=== PATIENT | male | born 1940 | race Caucasian/White ===

== ENCOUNTER → 2024-07-27 11:17 | Outpatient (REF) | payer OTHER, SELFPAY | LOC: HWRAD 11:17 | PROVIDERS: ATTENDING PHYSICIAN Internal Medicine Cardiovascular Disease; FAMILY PHYSICIAN Internal Medicine | DX: I65.23 Occlusion and stenosis of bilateral carotid arteries (principal) | CPT/HCPCS: 93880 ==

== ENCOUNTER → 2024-09-05 11:36 | Outpatient (REF) | payer OTHER, SELFPAY | LOC: RAD 11:36 | PROVIDERS: ATTENDING PHYSICIAN Surgery Vascular Surgery; FAMILY PHYSICIAN Internal Medicine | DX: I65.23 Occlusion and stenosis of bilateral carotid arteries (principal) | CPT/HCPCS: 70496; 70498; Q9967 ==

== ENCOUNTER 2024-10-09 06:10 | Inpatient (IN) | payer OTHER, SELFPAY ==
[2024-10-02 09:18] VITALS: BMI 27.4
[2024-10-02 09:42] LABS: % Basophils 0.7 % (0-2); % Eosinophils 6.5 % (0-6); % Immature Granulocytes 0.3 % (0-0.5); % Lymphocytes 13.7 % (20.5-51.1); % Monocytes 11.8 % (1.7-9.3); Absolute Basophils 0.1 10^3/uL (0-0.2); Absolute Eosinophils 0.6 10^3/uL (0-0.7); Absolute Lymphocytes 1.2 10^3/uL (1.2-3.4); Absolute Neutrophils 5.8 10^3/uL (1.4-6.5); Hemoglobin 15.2 g/dL (13.0-18.0); Mean Corp Hgb Conc. 34.5 g/dL (33.0-37.0); Mean Corpuscular Hgb 33.3 pg (27.0-31.0); Mean Corpuscular Volume 96.5 fL (80.0-94.0); Nucleated Red Blood Cells % 0 % (-); Platelet Count 219 10^3/uL (130-400); Red Blood Cell Count 4.56 10^6/uL (4.70-6.10); Red Cell Dist. Width 13.6 % (11.5-14.5); White Blood Cell Count 8.7 10^3/uL (4.8-10.8)
[2024-10-02 09:46] LABS: INR 1.23; PT 15.8 Sec (11.4-14.6)
[2024-10-02 09:47] LABS: APTT 31.4 Sec (23.4-35.0)
[2024-10-02 10:54] LABS: Blood Urea Nitrogen 16 mg/dl (9-20); Calcium 10.7 mg/dl (8.4-10.2); Carbon Dioxide 28 mmol/L (22-30); Chloride 104 mmol/L (98-107); Estimated Creatinine Clearance 53 ml/min; Glucose 104 mg/dl (70-99); Sodium 138 mmol/L (135-145); eGFR > 60.00
[2024-10-09] VITALS (21 sets, daily range): BP systolic 71–152; BP diastolic 34–63; BMI 27.3; BMI 27.4
[2024-10-09] MEDS: BACTROBAN NASAL 1 GRAM NASAL (07:06)
[2024-10-09] MEDS: PERIDEX 0.12% ORAL RINSE 15 ML PO (07:06)
--- NOTE | 2024-10-09 07:27 | W.SUR.PREOP ---
Pre-Operative Surgical Note
-
I have examined this patient prior to the performance of the scheduled procedure.
The patient's condition is unchanged from the time of the current History and
Physical and the patient is able to undergo the scheduled procedure.
[2024-10-09 09:02] LABS: ACT-LR - POC 356 Seconds (116-155)
[2024-10-09 09:38] LABS: ACT-LR - POC 326 Seconds (116-155)
--- NOTE | 2024-10-09 10:05 | OR.RPT ---
Operative Report
Operative Report
Date of Operation: 10/09/2024
Pre Op Diagnosis: Right carotid artery stenosis
Post Op Diagnosis: Right carotid artery stenosis
Procedure: RIGHT carotid endarterectomy with patch angioplasty using bovine pericardium
Surgeon: Uday Hannah III, MD
Contractor [employer]: Abel Carreon MD PGY1
Anesthesia: General
Complications: None
History and Indications for Procedure: 84-year-old male with high-grade right carotid artery stenosis
Procedure in Detail: Chavo Milian was correctly identified and placed supine on the operating table. After adequate induction of anesthesia the right neck was positioned, prepped and draped in the usual sterile fashion. Preoperative antibiotics
were administered. A timeout procedure was performed with the nursing and anesthesia staff confirming the patients identity as well as the nature and laterality of the procedure.
The carotid bifurcation was marked with ultrasound at the beginning of the case. The incision was planned accordingly. An incision was made along the anterior border of the right sternocleidomastoid muscle. Electrocautery was used to divide the
subcutaneous tissue and platysma. The carotid sheath was entered with sharp dissection. The internal jugular vein was retracted laterally. The vagus nerve was identified and protected throughout the case. The common carotid artery was identified at
the base of this incision and carefully encircled with a vessel loop. The patient was systemically heparinized. The dissection was continued distally towards the carotid bifurcation. The facial vein was skeletonized, ligated and divided between ties
and clips. The proximal external carotid artery was encircled with a vessel loop. The distal internal carotid artery was encircled with a vessel loop at a soft spot on the artery beyond the plaque. The hypoglossal nerve was identified and protected.
The internal vessel loop was secured followed by the common and external. An arteriotomy was made on the distal common carotid artery with an 11-blade. This was extended proximally and distally with Jensen scissors. The arteriotomy was extended
distally through the plaque to an area of normal appearing internal carotid artery. The distal vessel loop was replaced with a short tip hockey-stick type vascular clamp. An endarterectomy was performed with a Cherokee elevator in the standard
fashion. The proximal extent of the plaque was transected with scissors. The distal end of the plaque in the internal carotid artery was feathered. No distal intimal flap was identified. The plaque extending into the external carotid artery was
everted. Once the plaque was fully removed the endarterectomy plane was irrigated with heparinized saline and any loose fronds of tissue were removed. A pre-cut piece of bovine pericardium was sewn in place using a running 6-0 Prolene suture. Prior
to the completion of the patch the common carotid was allowed to forward bleed and the external was allowed to back bleed. The area under the patch was irrigated with heparinized saline to remove any potential thrombus or debris. The anastomosis was
completed.
The external vessel loop was released first, followed by the common and then the internal. There was an excellent pulse in the distal internal carotid artery. An excellent quality Doppler signal in the distal internal carotid artery was also
confirmed. The patch suture line was closely inspected for hemostasis and was achieved. Protamine was administered. Hemostasis was achieved in the wound bed. The wound was irrigated with saline solution.
The wound was then closed in layers. Sterile skin glue was applied. The patient awoke from anesthesia with no immediate neuro deficits and was taken to the PACU in stable condition.
Attestation: I was present and responsible for the entire procedure
Signed:
Uday Hannah III, MD
Vascular Surgery
[facility]
[2024-10-09 10:57] LABS: Hematocrit 37.3 % (39.0-52.0); Hemoglobin 13.2 g/dL (13.0-18.0); Mean Corp Hgb Conc. 35.4 g/dL (33.0-37.0); Mean Corpuscular Hgb 33.6 pg (27.0-31.0); Mean Corpuscular Volume 94.9 fL (80.0-94.0); Mean Platelet Volume 10.2 fL (7.4-10.4); Platelet Count 185 10^3/uL (130-400); Red Blood Cell Count 3.93 10^6/uL (4.70-6.10); Red Cell Dist. Width 13.2 % (11.5-14.5); White Blood Cell Count 13.1 10^3/uL (4.8-10.8)
[2024-10-09] MEDS: NEO-SYNEPHRINE 250 IV (11:05)
[2024-10-09] MEDS: DILAUDID 0.25 MG IV ×2 (11:08→11:40)
[2024-10-09 11:15] LABS: Blood Urea Nitrogen 19 mg/dl (9-20); Calcium 9.4 mg/dl (8.4-10.2); Carbon Dioxide 23 mmol/L (22-30); Chloride 108 mmol/L (98-107); Estimated Creatinine Clearance 59 ml/min; Glucose 137 mg/dl (70-99); Potassium 4.2 mmol/L (3.5-5.1); Sodium 136 mmol/L (135-145); eGFR > 60.00
[2024-10-09] MEDS: NSS 1000 IV ×2 (12:00→21:09)
--- NOTE | 2024-10-09 14:35 | CON.INTV ---
Consultation
Consultation Request
Date/Time Consultation Requested: 10/09/24
Date/Time Consultation Performed: 10/09/24
Performing Provider: Nilay
Reason for Consultation: ICU
Medical History
-
History of Present Illness:
Patient is an 84-year-old male with previous history of hypertension, hyperlipidemia, CAD, A-fib presenting for elective right carotid intervention. Is known to vascular as an outpatient with asymptomatic right carotid artery stenosis. Underwent
right CEA 10/09 and tolerated procedure well. He is admitted postoperatively to ICU for further management.
Past Medical History
Past Medical History: Other (see list below)
Social History
Tobacco: Non-smoker
Alcohol: None
Drug: None
Family History
Family History: Reviewed & Not Pertinent
Allergies / Home Medications
Allergies
Allergy/AdvReac Type Severity Reaction Status Date / Time
aspirin Allergy GI upset Verified 09/26/24 14:22
wheat Allergy wheezing Verified 09/26/24 14:22
Home Medications
�Medication �Instructions �Recorded �Confirmed �Last Taken �Type
acetylcarnitine HCl 250 mg capsule 1,000 mg PO DAILY 09/26/24 10/09/24 09/25/24 09:00 History
apixaban 5 mg tablet (Eliquis) 5 mg PO BID 09/26/24 10/09/24 10/06/24 18:00 History
ascorbic acid (vitamin C) 500 mg 500 mg PO DAILY 09/26/24 10/09/24 09/25/24 09:00 History
tablet (Vitamin C)
cholecalciferol (vitamin D3) 50 50 mcg PO DAILY 09/26/24 10/09/24 09/25/24 09:00 History
mcg (2,000 unit) capsule (Vitamin
D3)
clopidogrel 75 mg tablet 75 mg PO HS 09/26/24 10/09/24 10/08/24 18:00 History
coQ10 (ubiquinol) 200 mg capsule 200 mg PO DAILY 09/26/24 10/09/24 09/25/24 08:00 History
pravastatin 20 mg tablet 20 mg PO HS 09/26/24 10/09/24 10/08/24 18:00 History
sotalol 80 mg tablet 80 mg PO BID 09/26/24 10/09/24 10/09/24 06:00 History
Review of Systems
-
History Source: Patient
All other systems: Negative unless noted
Vitals / Labs / Diagnostic Testing
Vital Signs
Temp Pulse Resp BP Pulse Ox
97.3 F 57 21 102/52 95
10/09/24 10:30 10/09/24 14:15 10/09/24 14:15 10/09/24 14:00 10/09/24 14:15
Lab Data
10/09/24 10:49
10/09/24 10:49
Diagnostic Testing:
Physical Exam
-
HEENT: Normocephalic, Anicteric, Moist Mucous Membranes and Other (incision CDI)
Cardiovascular: S1/S2 and Regular Rhythm
Respiratory: Clear and Non-Labored Respirations
GI: Soft, Non Distended and Non Tender
Neurology: Awake, Alert, Oriented and No Motor Deficits
Skin: Warm, Dry and Good Color
General: Comfortable and Other (NAD)
Assessment
-
Patient is an 84-year-old male with previous history of hypertension, hyperlipidemia, CAD, A-fib presenting for elective right carotid intervention. Is known to vascular as an outpatient with asymptomatic right carotid artery stenosis. Underwent
right CEA 10/09 and tolerated procedure well. He is admitted postoperatively to ICU for further management.
Carotid disease s/p R CEA 10/09/24
Leukocytosis, mild
Hyperglycemia
Conditions present prior to admission
Hypertension
Hyperlipidemia
CAD
Enlarged prostate
Paroxysmal atrial fibrillation on Eliquis
Mitral regurgitation
Basal cell carcinoma on the forehead
Plan
Patient is s/p R CEA by vascular surgery service, POD #0
Continue observation following procedure
Follow neurovascular checks per protocol
Follow BP monitoring and parameters as set by primary team
Cardiac history noted--PAF on Eliquis, sotalol--resume as able
Monitor on telemetry
Pain control per protocol
RASS goal 0
No prior history of pulmonary disease, stable on RA
CXR reviewed indicating no acute disease
No prior PFTs for review
Encouraged IS
Diet advancement per protocol
Aspiration precautions
GI prophylaxis if indicated for stress ulcer prevention in the critically ill
Creat at baseline, follow UO
Critical I/Os
Void trials
Replete electrolytes as needed
No signs/symptoms suspicious for infectious etiology at this time
Mild postop leukocytosis, monitor
Will observe off antibiotics for now
Follow temperatures/CBC
Hb and platelets postoperatively stable
DVT prophylaxis recommended if not contraindicated based on procedural history -- heparin SQ and mechanical SCDs
Encouraged OOB/PT/OT/ambulation once cleared by surgical team
We will follow
Diagnostic Data
Chest X-Ray: 10/02/24- 1. Calcific atherosclerotic disease in the coronary arteries and thoracic aorta.
2. Mild tortuosity of the thoracic aorta.
3. Mild elevation of the right hemidiaphragm.
4. Mild subsegmental atelectasis/scarring in the lingula.
5. 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
CT Scan: H&N 09/05/24- CT Brain: No acute intracranial process. Mild senescent change.
CTA Head: No significant arterial stenosis. No aneurysm.
CTA Neck:
-There is mixed density atherosclerotic plaque of the right carotid bifurcation/proximal ICA with resultant near total occlusion. This appears similar to prior imported CTA.
-There is mild narrowing within the superior aspect of the left common carotid artery secondary to noncalcified atherosclerotic plaque. There is mild retropharyngeal course of the left common carotid artery.
Echo:
PFT's:
Reports and relevant images were personally reviewed.
Critical Care time 50 mins -- this includes review of history, physical exam, medications, hemodynamic/O2 parameters, laboratory data, imaging and discussions with care team, pharmacy, nursing and patient.
[2024-10-09] MEDS: NSS 500 IV (16:12)
[2024-10-09 16:38] LABS: Glucose - Point of Care 151 mg/dl (70-99)
--- NOTE | 2024-10-09 16:51 | PTCARENOTE ---
Received pt from PACU after scheduled R CEA. VSS with BP managed on Richard-synephrine to maintain BP 100-165. Neurological check WNL. Sinus rhythm, room air with SpO2 96%. Tolerating diet. No UOP at this time. R neck incision approximated with
bruising, WEB MARKETING COORDINATOR, no drainage or edema. NSS at 80cc/hr. Left PIV X2 removed in PACU due to infiltration. R PIV and a-line WNL. Family at bedside, plan of care discussed.
--- NOTE | 2024-10-09 19:33 | PTCARENOTE ---
Assumed care of pt. approx 1900.
Arterial line waveform appropriate and correlating well with NIBP. Titration metrics off of Art line.
Remains off tanya, meeting SBP goal w.o support.
Pt. offers no complaints of pain.
Plan of care and limitations/restrictions explained to patient.
[2024-10-09] MEDS: HEPARIN 5000 UNITS SC (19:57)
--- NOTE | 2024-10-09 20:08 | PTCARENOTE ---
Vascular surgery notified of concerns with giving sotalol due to HR in 50-low 60s. SBP just at goal of 106, recently off tanya.
Orders to hold tonights dose. Per vascular coverage via TT.
[2024-10-09] MEDS: BETAPACE PO (20:23)
[2024-10-09] MEDS: PRAVACHOL 20 MG PO (21:06)
[2024-10-09] MEDS: PLAVIX 75 MG PO (21:06)
[2024-10-10] VITALS (30 sets, daily range): BP systolic 75–134; BP diastolic 41–96; BMI 27.5
[2024-10-10 03:04] LABS: Hematocrit 36.6 % (39.0-52.0); Hemoglobin 12.8 g/dL (13.0-18.0); Mean Corpuscular Volume 94.3 fL (80.0-94.0); Mean Platelet Volume 10.1 fL (7.4-10.4); Platelet Count 192 10^3/uL (130-400); Red Blood Cell Count 3.88 10^6/uL (4.70-6.10); Red Cell Dist. Width 13.7 % (11.5-14.5)
[2024-10-10 03:12] LABS: INR 1.23; PT 15.8 Sec (11.4-14.6)
[2024-10-10 03:13] LABS: APTT 30.4 Sec (23.4-35.0)
[2024-10-10 03:14] LABS: Blood Urea Nitrogen 22 mg/dl (9-20); Calcium 9.8 mg/dl (8.4-10.2); Carbon Dioxide 21 mmol/L (22-30); Chloride 108 mmol/L (98-107); Estimated Creatinine Clearance 53 ml/min; Glucose 146 mg/dl (70-99); Potassium 4.3 mmol/L (3.5-5.1); Sodium 135 mmol/L (135-145); eGFR > 60.00
--- NOTE | 2024-10-10 06:16 | PTCARENOTE ---
No change in pt. assessment HS.
--- NOTE | 2024-10-10 07:15 | W.PN.INTV ---
Today's Communication / Plan
Recommendations
Doing well, stable on RA
Add PRN nebs for SOB
Otherwise, encouraged OOB/PT, ambulation
Discharge planning per team if remains stable
Assessment
-
Patient is an 84-year-old male with previous history of hypertension, hyperlipidemia, CAD, A-fib presenting for elective right carotid intervention. Is known to vascular as an outpatient with asymptomatic right carotid artery stenosis. Underwent
right CEA 10/09 and tolerated procedure well. He is admitted postoperatively to ICU for further management.
Carotid disease s/p R CEA 10/09/24
Leukocytosis, mild
Hyperglycemia
Conditions present prior to admission
Hypertension
Hyperlipidemia
CAD
Enlarged prostate
Paroxysmal atrial fibrillation on Eliquis
Mitral regurgitation
Basal cell carcinoma on the forehead
Plan
Patient is s/p R CEA by vascular surgery service, POD #1
Continue observation following procedure
Follow neurovascular checks per protocol
Follow BP monitoring and parameters as set by primary team
Cardiac history noted--PAF on Eliquis, sotalol--resume as able
Monitor on telemetry
Pain control per protocol
RASS goal 0
No prior history of pulmonary disease, stable on RA
CXR reviewed indicating no acute disease
No prior PFTs for review
Encouraged IS
SOB and wheezing noted, he states he occasionally takes inhalers at home
Will add nebs PRN
Diet advancement per protocol
Aspiration precautions
GI prophylaxis if indicated for stress ulcer prevention in the critically ill
Creat at baseline, follow UO
Critical I/Os
Void trials
Replete electrolytes as needed
No signs/symptoms suspicious for infectious etiology at this time
Mild postop leukocytosis, monitor
Will observe off antibiotics for now
Follow temperatures/CBC
Hb and platelets postoperatively stable
DVT prophylaxis recommended if not contraindicated based on procedural history -- heparin SQ and mechanical SCDs
Encouraged OOB/PT/OT/ambulation once cleared by surgical team
Discharge planning per team
Diagnostic Data
Chest X-Ray: 10/02/24- 1. Calcific atherosclerotic disease in the coronary arteries and thoracic aorta.
2. Mild tortuosity of the thoracic aorta.
3. Mild elevation of the right hemidiaphragm.
4. Mild subsegmental atelectasis/scarring in the lingula.
5. 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
CT Scan: H&N 09/05/24- CT Brain: No acute intracranial process. Mild senescent change.
CTA Head: No significant arterial stenosis. No aneurysm.
CTA Neck:
-There is mixed density atherosclerotic plaque of the right carotid bifurcation/proximal ICA with resultant near total occlusion. This appears similar to prior imported CTA.
-There is mild narrowing within the superior aspect of the left common carotid artery secondary to noncalcified atherosclerotic plaque. There is mild retropharyngeal course of the left common carotid artery.
Echo:
PFT's:
Reports and relevant images were personally reviewed.
Critical Care time 31 mins -- this includes review of history, physical exam, medications, hemodynamic/O2 parameters, laboratory data, imaging and discussions with care team, pharmacy, nursing and patient.
Subjective Dataa
Subjective Data
Date of Service:
Date of Service: October 10, 2024
Chief Complaint: Human Resources Office Assistant Follow Up
Subjective:
Doing well, stable on RA
Some SOB and wheezing with morning care
Objective Data
Data Reviewed
Vital Signs / I&O / Oxygen:
Vital Signs
Temp Pulse Resp BP Pulse Ox
98.4 F 58 16 106/78 96
10/10/24 03:16 10/10/24 06:00 10/10/24 06:00 10/09/24 20:23 10/10/24 04:11
Intake and Output
10/09/24 10/10/24 10/11/24
06:59 06:59 06:59
Intake Total 1872.2 / 1872.2
Output Total 1450 / 1450
Balance 422.2 / 422.2
SaO2 96
Physical Exam
General: Comfortable and Other (NAD)
HEENT: Normocephalic, Anicteric and Moist Mucous Membranes
Cardiovascular: S1-S2 and Regular Rhythm
Respiratory: Wheeze (slight) and Non-Labored Respirations
GI: Soft, Non Distended and Non Tender
Neurology: Awake, Alert, Oriented and No Motor Deficits
Skin: Warm, Dry and Good Color
Labs/Micro/Reports
Lab Data
10/10/24 02:38
10/10/24 02:38
Laboratory Results
10/10/24
02:38
PT 15.8 H
INR 1.23
APTT 30.4
[2024-10-10] MEDS: VITAMIN C 500 MG PO (08:00)
[2024-10-10] MEDS: HEPARIN 5000 UNITS SC ×2 (08:00→19:38)
[2024-10-10] MEDS: VITAMIN D3 (cholecalciferol) 50 MCG PO (08:00)
--- NOTE | 2024-10-10 08:00 | PTCARENOTE ---
received patient from slot shift supervisor. patient is AAOx4, moves all extremities, neuro checks WNL and remain unchanged. Patient is on room air, lungs slightly diminished. He is sinus rhythm on monitor. right radial chucky correlating with cuff
pressure. Patient ordered breakfast and is using urinal to void. plan to d/c IVF and a-line and get OOB. potential discharge this afternoon.
[2024-10-10] MEDS: BETAPACE 80 MG PO ×2 (08:19→19:36)
--- NOTE | 2024-10-10 08:23 | W.PN.VS ---
Addendum entered and electronically signed by Vasile Diaz MD 10/11/24 07:16:
Late entry. Seen and examined with DIANA Wiggins yesterday. Findings and plan as discussed and noted below.
Original Note:
Today's Communication / Plan
-
Patient seen and examined at bedside with Dr. Vasile Diaz, below plan reviewed with attending.
Assessment/Plan
-
Assessment: 84-year-old male POD #1 right carotid endarterectomy
Plan:
Discontinue IV fluid
Discontinue arterial line
OOB to chair with progression to ambulation as tolerated
Possible discharge later this afternoon
Subjective Data
-
Date of Service: October 10, 2024
Patient seen and examined at bedside, offers no complaints. Eating breakfast and denies headache, nausea, vomiting, fever, and chills.
Objective Data
-
Vital Signs
Temp Pulse Resp BP Pulse Ox
98 F 77 23 117/62 96
10/10/24 07:20 10/10/24 08:19 10/10/24 08:00 10/10/24 08:19 10/10/24 04:11
Intake and Output
10/09/24 10/10/24 10/11/24
06:59 06:59 06:59
Intake Total 1872.2 / 2162.2 290 / 290
Output Total 1450 / 1450 0 / 0
Balance 422.2 / 712.2 290 / 290
Intake:
Oral fluids 220 / 460 240 / 240
IV fluids (Total) 1652.2 / 1702.2 50 / 50
NSS 1620 / 1670 50 / 50
Richard 6 / 6
heparin 26.2 / 26.2
Output:
Urine, Voided 1450 / 1450 0 / 0
Lab Results
10/10/24 02:38
10/10/24 02:38
Calcium 9.8 mg/dl (8.4-10.2) 10/10/24 02:38
Physical Exam
-
No apparent distress, resting in bed comfortably
Right neck surgical incision CDI, no evidence of hematoma or edema, suture line well-approximated, tongue midline
No tachycardia
No dyspnea on room air
ABD nondistended
Moves bilateral upper extremities and lower extremities spontaneously and to command with equal strength
--- NOTE | 2024-10-10 08:30 | PTCARENOTE ---
discontinued arterial line. will get patient oob.
[2024-10-10] MEDS: NSS IV (11:50)
--- NOTE | 2024-10-10 11:50 | PTCARENOTE ---
Patient ambulated unit and IMU unit as well, no issues.
[2024-10-10] MEDS: NSS 250 IV ×2 (13:41→15:21)
--- NOTE | 2024-10-10 14:15 | PTCARENOTE ---
Patient alarm sounding for low blood pressure, rechecked on both arms, notified vascular team. NSS bolus administered.
--- NOTE | 2024-10-10 14:32 | CM ---
CM following re: discharge planning.
Reviewed pt's chart, met with pt. Pt's spouse and their daughter at bedside.
Pt is an 84 year old male, admitted with primary dx of POD #1 right carotid endarterectomy.
Pt reports he lives with spouse 2SH, 1 step to enter, has 2 supportive children. 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 No DME, VN or SNF history. Pt expressed his desire to return back home at discharge.
IMM reviewed, placed on chart, pt has a copy.
PCP: Ector Jo
Pharmacy: [facility]
D/c plan: home with anticipated no needs. Spouse to transport at discharge.
CM will follow with discharge plan updates as needed.
--- NOTE | 2024-10-10 15:26 | W.PN.UPDATE ---
Update Note
Progress Note Update
Patient seen at bedside for asymptomatic hypotension. Patient's family concerned about his p.m. dose of sotalol at home tonight. Plan to keep patient overnight to monitor blood pressure while receiving his sotalol. Patient and family agreeable to
this plan.
--- NOTE | 2024-10-10 16:00 | PTCARENOTE ---
500ml bolus given and will restart maintenance fluids at 80ml/hr. Patient to remain in hospital one more night per vascular team.
[2024-10-10] MEDS: NSS 1000 IV (16:14)
--- NOTE | 2024-10-10 20:13 | PTCARENOTE ---
Received patient AAOx3, following commands, denying pain. SB/NS, 50s-60s, BP 100s/50s, normothermic. Palpable radial and pedal pulses b/l. 97% on room air, lung sounds diminished in the bases. Abdomen soft, round, nontender. Urinal to void,
ambulates to bathroom prn. Right surgical site CDI, approximated, surgiglue intact. IVF at 80 mls/hr ongoing, PIV patent, WNL. Hourly rounding and patient safety checks ongoing.
[2024-10-10] MEDS: PRAVACHOL 20 MG PO (21:29)
[2024-10-10] MEDS: PLAVIX 75 MG PO (21:29)
[2024-10-11] VITALS (11 sets, daily range): BP systolic 109–139; BP diastolic 60–90; BMI 27.1
--- NOTE | 2024-10-11 01:01 | PTCARENOTE ---
Patient assessment unchanged from previous, call aguillon within reach.
[2024-10-11] MEDS: NSS 1000 IV (05:08)
[2024-10-11] MEDS: VENTOLIN NEBULES 2.5 MG INH (05:33)
[2024-10-11 05:49] LABS: Hematocrit 38.1 % (39.0-52.0); Hemoglobin 13.1 g/dL (13.0-18.0); Mean Corp Hgb Conc. 34.4 g/dL (33.0-37.0); Mean Corpuscular Hgb 32.9 pg (27.0-31.0); Mean Corpuscular Volume 95.7 fL (80.0-94.0); Mean Platelet Volume 10.2 fL (7.4-10.4); Platelet Count 177 10^3/uL (130-400); Red Blood Cell Count 3.98 10^6/uL (4.70-6.10); Red Cell Dist. Width 13.6 % (11.5-14.5)
[2024-10-11 06:10] LABS: Blood Urea Nitrogen 18 mg/dl (9-20); Calcium 9.9 mg/dl (8.4-10.2); Carbon Dioxide 21 mmol/L (22-30); Chloride 111 mmol/L (98-107); Estimated Creatinine Clearance 66 ml/min; Glucose 109 mg/dl (70-99); Potassium 4.2 mmol/L (3.5-5.1); Sodium 137 mmol/L (135-145); eGFR > 60.00
--- NOTE | 2024-10-11 07:17 | W.PN.INTV ---
Today's Communication / Plan
Recommendations
Doing well, no issues overnight
Encouraged OOB/PT
Discharge planning per team
Assessment
-
Patient is an 84-year-old male with previous history of hypertension, hyperlipidemia, CAD, A-fib presenting for elective right carotid intervention. Is known to vascular as an outpatient with asymptomatic right carotid artery stenosis. Underwent
right CEA 10/09 and tolerated procedure well. He is admitted postoperatively to ICU for further management.
Carotid disease s/p R CEA 10/09/24
Leukocytosis, mild
Hyperglycemia
Conditions present prior to admission
Hypertension
Hyperlipidemia
CAD
Enlarged prostate
Paroxysmal atrial fibrillation on Eliquis
Mitral regurgitation
Basal cell carcinoma on the forehead
Plan
Patient is s/p R CEA by vascular surgery service, POD #2
Continue observation following procedure
Follow neurovascular checks per protocol
Follow BP monitoring and parameters as set by primary team
Cardiac history noted--PAF on Eliquis, sotalol--resume as able
Monitor on telemetry
Pain control per protocol
RASS goal 0
No prior history of pulmonary disease, stable on RA
CXR reviewed indicating no acute disease
No prior PFTs for review
Encouraged IS
SOB and wheezing noted, he states he occasionally takes inhalers at home
Will add nebs PRN
Diet advancement per protocol
Aspiration precautions
GI prophylaxis if indicated for stress ulcer prevention in the critically ill
Creat at baseline, follow UO
Critical I/Os
Void trials
Replete electrolytes as needed
No signs/symptoms suspicious for infectious etiology at this time
Mild postop leukocytosis, monitor
Will observe off antibiotics for now
Follow temperatures/CBC
Hb and platelets postoperatively stable
DVT prophylaxis recommended if not contraindicated based on procedural history -- heparin SQ and mechanical SCDs
Encouraged OOB/PT/OT/ambulation once cleared by surgical team
Discharge planning per team
Diagnostic Data
Chest X-Ray: 10/02/24- 1. Calcific atherosclerotic disease in the coronary arteries and thoracic aorta.
2. Mild tortuosity of the thoracic aorta.
3. Mild elevation of the right hemidiaphragm.
4. Mild subsegmental atelectasis/scarring in the lingula.
5. 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
CT Scan: H&N 09/05/24- CT Brain: No acute intracranial process. Mild senescent change.
CTA Head: No significant arterial stenosis. No aneurysm.
CTA Neck:
-There is mixed density atherosclerotic plaque of the right carotid bifurcation/proximal ICA with resultant near total occlusion. This appears similar to prior imported CTA.
-There is mild narrowing within the superior aspect of the left common carotid artery secondary to noncalcified atherosclerotic plaque. There is mild retropharyngeal course of the left common carotid artery.
Echo:
PFT's:
Reports and relevant images were personally reviewed.
Critical Care time 31 mins -- this includes review of history, physical exam, medications, hemodynamic/O2 parameters, laboratory data, imaging and discussions with care team, pharmacy, nursing and patient.
Subjective Dataa
Subjective Data
Date of Service:
Date of Service: October 11, 2024
Chief Complaint: Manager Storage Follow Up
Subjective:
Doing well, ready to go home
Stable ON
Objective Data
Data Reviewed
Vital Signs / I&O / Oxygen:
Vital Signs
Temp Pulse Resp BP Pulse Ox
97.7 F 59 22 129/70 97
10/11/24 00:00 10/11/24 06:00 10/11/24 06:00 10/11/24 06:00 10/10/24 20:02
Intake and Output
10/10/24 10/11/24 10/12/24
06:59 06:59 06:59
Intake Total 1872.2 / 2162.2 2270 / 2270
Output Total 1450 / 1450 2299 / 2299
Balance 422.2 / 712.2 -30 / -30
SaO2 97
Physical Exam
General: Comfortable and Other (NAD)
HEENT: Normocephalic, Anicteric and Moist Mucous Membranes
Cardiovascular: S1-S2 and Regular Rhythm
Respiratory: Wheeze (slight) and Non-Labored Respirations
GI: Soft, Non Distended and Non Tender
Neurology: Awake, Alert, Oriented and No Motor Deficits
Skin: Warm, Dry and Good Color
Labs/Micro/Reports
Lab Data
10/11/24 05:23
10/11/24 05:23
--- NOTE | 2024-10-11 07:18 | W.PN.VS ---
Today's Communication / Plan
-
Seen and assessed with Dr Diaz
Assessment/Plan
-
Assessment: 84-year-old male POD #2 right carotid endarterectomy
Plan:
Pt stable for discharge
Subjective Data
-
Date of Service: October 11, 2024
Pt seen at bedside this am with Dr Diaz. Pt offers no complaints at this time. No events overnight. Pt was able to get his sotalol last night and BP remain stable.
Objective Data
-
Vital Signs
Temp Pulse Resp BP Pulse Ox
97.7 F 59 22 129/70 97
10/11/24 00:00 10/11/24 06:00 10/11/24 06:00 10/11/24 06:00 10/10/24 20:02
Intake and Output
10/10/24 10/11/24 10/12/24
06:59 06:59 06:59
Intake Total 1872.2 / 2162.2 2270 / 2270
Output Total 1450 / 1450 2300 / 2300
Balance 422.2 / 712.2 -30 / -30
Intake:
Oral fluids 220 / 460 600 / 600
IV fluids (Total) 1652.2 / 1702.2 1670 / 1670
Bolus 500 / 500
NSS 1620 / 1670 50 / 50
Richard 6 / 6
Nss 1,000 ml @ 80 mls/hr IV . 1120 / 1120
[id number] JAVIER Rx#:[id number]
heparin 26.2 / 26.2
Output:
Urine, Voided 1450 / 1450 2300 / 2300
Lab Results
10/11/24 05:23
10/11/24 05:23
Calcium 9.9 mg/dl (8.4-10.2) 10/11/24 05:23
Physical Exam
-
No apparent distress, resting in bed comfortably
Right neck surgical incision CDI, no evidence of hematoma, suture line well-approximated, tongue midline
No tachycardia
No dyspnea on room air
ABD nondistended
Moves bilateral upper extremities and lower extremities spontaneously and to command with equal strength
--- NOTE | 2024-10-11 07:26 | W.DS.TRANS ---
DC Summary - [employer]
-
Discharge Instructions:
Sleep Apnea Risk Intermediate
Discharge Diagnosis/Procedures Right carotid endarterectomy
Diet As tolerated
Activity No strenuous activity
Driving Restrictions Not until seen by your Dr
Bathing Restrictions OK to Shower
Instructions:
Stand-Alone Forms: DC Instr - Vascular OR
Changes to Home Medications: Yes
Discharge Medications:
DC Medications w/original date entered in [facility]
acetylcarnitine HCl 250 mg capsule 1,000 mg PO DAILY Supplement 09/26/24
apixaban 5 mg tablet (Eliquis) 5 mg PO BID Blood Clot Prevention/Tx 09/26/24
ascorbic acid (vitamin C) 500 mg tablet (Vitamin C) 500 mg PO DAILY Supplement 09/26/24
cholecalciferol (vitamin D3) 50 mcg (2,000 unit) capsule (Vitamin D3) 50 mcg PO DAILY Supplement 09/26/24
clopidogrel 75 mg tablet 75 mg PO HS Blood Clot Prevention/Tx 09/26/24
coQ10 (ubiquinol) 200 mg capsule 200 mg PO DAILY Supplement 09/26/24
pravastatin 20 mg tablet 20 mg PO HS High Cholesterol 09/26/24
sotalol 80 mg tablet 80 mg PO BID Heart Disease/Condition 09/26/24
Home Medication Changes
Held apixaban 5 mg tablet (Eliquis) 5 mg PO BID Blood Clot Prevention/Tx 09/26/24 for 72 hours post surgery
Pending Results: No
[2024-10-11] MEDS: BETAPACE 80 MG PO (08:17)
[2024-10-11] MEDS: VITAMIN C 500 MG PO (08:17)
[2024-10-11] MEDS: VITAMIN D3 (cholecalciferol) 50 MCG PO (08:17)
[2024-10-11] MEDS: HEPARIN 5000 UNITS SC (08:19)
--- NOTE | 2024-10-11 09:10 | CM ---
CM following re: discharge planning.
Reviewed pt's chart, met with pt.
Discharge order noted. Pt is aware, expressed his agreement and he stated his spouse will transport home.
No after care VN services indicated.
Plan: home with no after care VN needs. Spouse to transport.
--- NOTE | 2024-10-11 09:13 | PTCARENOTE ---
pt is awake and alert, pt R neck incision site ecchymotic , no hematoma , soft , non tender , pt current BP 109/62 post Sotalol administration , the patient was seen by Dr Diaz and he is written for DC home today
--- NOTE | 2024-10-11 13:00 | PTCARENOTE ---
IV removed , DC instructions given to and patient both verbalized understanding
== END 2024-10-11 13:08 | disposition home or self-care (01) | DRG 39 ==
LOC: ICU 06:10
PROVIDERS: Nurse Practitioner; Nurse Practitioner Acute Care; ADMITTING PHYSICIAN Surgery Vascular Surgery; CONSULT PHYSICIAN Internal Medicine; PRIMARYCARE PHYSICIAN Internal Medicine
PROC: 03UK0KZ Supplement Right Internal Carotid Artery with Nonautologous Tissue Substitute, Open Approach (ICD-10-PCS; 2024-10-09)
PROC: 03CK0ZZ Extirpation of Matter from Right Internal Carotid Artery, Open Approach (ICD-10-PCS; 2024-10-09)
DX: I65.23 Occlusion and stenosis of bilateral carotid arteries (principal); I10 Essential (primary) hypertension; E78.5 Hyperlipidemia, unspecified; I25.10 Atherosclerotic heart disease of native coronary artery without angina pectoris; I48.0 Paroxysmal atrial fibrillation; D72.829 Elevated white blood cell count, unspecified; R73.9 Hyperglycemia, unspecified; N40.0 Benign prostatic hyperplasia without lower urinary tract symptoms; I34.0 Nonrheumatic mitral (valve) insufficiency; I95.81 Postprocedural hypotension; Z79.01 Long term (current) use of anticoagulants; Z79.02 Long term (current) use of antithrombotics/antiplatelets; Z85.828 Personal history of other malignant neoplasm of skin; Z88.6 Allergy status to analgesic agent; Z91.018 Allergy to other foods
CPT/HCPCS: 88304; 88311; 35301; 36415; 71046; 80048; 82962; 85025; 85027; 85610; 85730; 94640; 95938; 95941; 95955

== ENCOUNTER → 2024-11-13 11:25 | Outpatient (REF) | payer OTHER, SELFPAY | LOC: DHVS 11:25 | PROVIDERS: ATTENDING PHYSICIAN Registered Nurse | DX: I65.23 Occlusion and stenosis of bilateral carotid arteries (principal) | CPT/HCPCS: 93880 ==

== ENCOUNTER → 2025-05-21 13:50 | Outpatient (REF) | payer OTHER, SELFPAY | LOC: RAD 13:50 | PROVIDERS: ATTENDING PHYSICIAN Registered Nurse; FAMILY PHYSICIAN Internal Medicine | DX: I65.23 Occlusion and stenosis of bilateral carotid arteries (principal) | CPT/HCPCS: 93880 ==